=== PATIENT | female | born 1990 | race Caucasian/White ===

== ENCOUNTER 2017-06-09 21:52 | Emergency (ER) | payer OTHER ==
[2017-06-09 23:06] VITALS: BP 114/70; PULSE 85; TEMP 98.2; BMI 23.8
--- NOTE | 2017-06-10 00:37 | PDOC ---
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 Past History - Past Medical History Allergies/Adverse Reactions: Allergies Allergy/AdvReac Type Severity Reaction Status Date / Time No Known Allergies Allergy Verified 10/28/15 19:49 Home Medications: Ambulatory Orders Nitrofurantoin Macrocrystal [Macrodantin] 25 mg PO BID 10/28/15 Tablet 1 tablet PO DAILY 05/07/16 Ibuprofen [Motrin -] 600 mg PO QID #28 tablet 05/10/16 Oxycodone HCl/Acetaminophen [Percocet 5-325 mg Tablet] 1 tab PO Q6H #20 tablet MDD 4 05/10/16 Permethrin 5% Topical Cream [Elimite -] 1 applic TP ONCE #1 tube 06/10/17 Asthma: No Cancer: No Cardiac Disorders: No Diabetes: No HTN: No Seizures: No Thyroid Disease: No - Reproductive History (#): 1 Para: 1 - Suicide/Smoking/Psychosocial Hx Smoking History: Never smoked Have you smoked in the past 12 months: No Number of Cigarettes Smoked Daily: 0 Information on smoking cessation initiated: No Hx Alcohol Use: No Drug/Substance Use Hx: No Hx Substance Use Treatment: No Review of Systems - Review of Systems Able to Perform ROS?: Yes Is the patient limited Green[place]ic proficient: No Constitutional: No: Symptoms Reported, See HPI, Chills, Diaphoresis, Fever, Loss of Appetite, Malaise, Night Sweats, Weakness, Weight Stable, Unintentional Wgt. Loss, Unexplained wgt Loss, Other ABD/GI: No: Symptoms Reported, See HPI, Abdominal Distended, Abd. Pain w/ defecation, Blood Streaked Bowels, Constipated, Diarrhea, Difficulty Swallowing , Nausea, Poor Appetite, Poor Fluid Intake, Rectal Bleeding, Vomiting, Indigestion, Abdominal cramping, Tarry Stools, Other Integumentary: Yes: Pruritus, Rash. No: Symptoms Reported, See HPI, Bruising, Change in Color, Change in Hair/Nails, Dryness, Erythema, Flushing, Lesions, Lumps, Pallor, Sweating, Other *Physical Exam - Vital Signs Last Vital Signs Temp Pulse Resp BP Pulse Ox 98.2 F 85 20 114/70 100 06/09/17 23:04 06/09/17 23:04 06/09/17 23:04 06/09/17 23:04 06/09/17 23:04 - Physical Exam General Appearance: Yes: Appropriately Dressed Extremity: positive: Other (+ interphalgeal lesions, lesions thorughout body. ) Neurologic: positive: Fully Oriented, Alert Progress Note - Progress Note Progress Note: A: scabies P: permetherine cream. *DC/Admit/Observation/Transfer Diagnosis at time of Disposition: Scabies - Discharge Dispostion Disposition: HOME - Prescriptions Prescriptions: Permethrin 5% Topical Cream [Elimite -] 1 applic TP ONCE #1 tube - Referrals - Patient Instructions Printed Discharge Instructions: Scabies Additional Instructions: it is still a good idea to wash or isolate any clothing, bedding, towels, pajamas, underwear, or stuffed animals that the person has touched within three days before treatment. It is not usually necessary to wash other items. Reasonable options for eliminating mites from these items include placing them in plastic bags for at least three days, machine washing and then ironing or drying in an electric dryer on the hot setting, or dry cleaning. apply permetharine to body leave on 8-14 hours - Post Discharge Activity
== END 2017-06-10 01:17 | disposition home or self-care (01) ==
LOC: JER 21:52
DX: B86 Scabies (principal)
CPT/HCPCS: 99281-25

== ENCOUNTER 2021-07-20 14:15 | Emergency (ER) | payer OTHER ==
[2021-07-20 14:28] VITALS: BP 154/102; PULSE 88; BMI 23.8
[2021-07-20] MEDS ORDERED: ACETAMINOPHEN 1000 MG/100 ML BAG IVPB ONE (15:17)
[2021-07-20] MEDS ORDERED: FAMOTIDINE 20 MG/50 ML IVPB 20 MG/50 ML MG IVPB ONE ×2 (15:17→15:33)
[2021-07-20] MEDS ORDERED: SODIUM CHLORIDE 1,000 ML IV STA ×2 (15:17→16:47)
[2021-07-20] MEDS ORDERED: ONDANSETRON 4 MG/2 ML VIAL IVPUSH ONE (15:17)
[2021-07-20] MEDS ORDERED: ONDANSETRON 4 MG/2 ML VIAL ONE (15:32)
[2021-07-20] MEDS ORDERED: ACETAMINOPHEN INJECTION 100 ML IVPB ONE (15:32)
[2021-07-20 16:03] LABS: BASO % 0.5 % (0-2.0); HEMATOCRIT 41.4 % (32.4-45.2); HEMOGLOBIN 13.8 GM/dL (10.7-15.3); LYMPH % 9.3 % (8-40); MCH 30.7 pg (25.7-33.7); MCHC 33.3 g/dl (32.0-36.0); MEAN CELL VOLUME 92.1 fl (80-96); MEAN PLT VOLUME 7.4 fl (7.5-11.1); MONO % 2.5 % (3.8-10.2); NEUT % 87.7 % (42.8-82.8); PLATELET COUNT 309 10^3/uL (134-434); RDW 13.3 % (11.6-15.6); WHITE BLOOD COUNT 16.8 K/mm3 (4.0-10.0)
[2021-07-20 16:20] LABS: CALCIUM 8.9 mg/dL (8.5-10.1)
[2021-07-20 16:21] LABS: ALBUMIN 4.5 g/dl (3.4-5.0)
[2021-07-20 16:23] LABS: CREATININE 0.6 mg/dL (0.55-1.3)
[2021-07-20 16:25] LABS: BILIRUBIN,TOTAL 0.4 mg/dL (0.2-1); TOT PROT 8.7 g/dl (6.4-8.2)
[2021-07-20 18:03] LABS: URINE APPEARANCE CLEAR; URINE BILIRUBIN NEGATIVE (NEGATIVE); URINE COLOR YELLOW; URINE GLUCOSE (UA) NEGATIVE (NEGATIVE); URINE KETONE 4+ (NEGATIVE); URINE LEUK ESTERASE NEGATIVE (NEGATIVE); URINE NITRITE NEGATIVE (NEGATIVE); URINE PROTEIN NEGATIVE (NEGATIVE); URINE UROBILINOGEN 0.2 mg/dL (0.2-1.0)
== END 2021-07-20 18:59 | disposition home or self-care (01) ==
LOC: JER 14:15
PROC: 3E033GC Introduction of Other Therapeutic Substance into Peripheral Vein, Percutaneous Approach (ICD-10-PCS; principal; 2021-07-20)
DX: K52.9 Noninfective gastroenteritis and colitis, unspecified (principal)
CPT/HCPCS: 36415; 80053; 81003; 83690; 84703; 85025; 87086; 96365; 96375; 99284-25

== ENCOUNTER 2023-12-24 22:49 | Observation (INO) | payer OTHER ==
[2023-12-24 22:58] VITALS: BMI 23.4
[2023-12-25] MEDS ORDERED: ACETAMINOPHEN INJECTION 100 ML IVPB ONE (01:48)
[2023-12-25] MEDS ORDERED: ONDANSETRON 4 MG/2 ML VIAL ONE (01:48)
[2023-12-25] MEDS: ACETAMINOPHEN 1000 MG/100 ML BAG IVPB ONE (02:09)
[2023-12-25] MEDS: SODIUM CHLORIDE 0.9% 500 ML INFUS.BAG IV ONE (02:09)
[2023-12-25] MEDS: ONDANSETRON 4 MG/2 ML VIAL IVPB ONE (02:09)
[2023-12-25 02:15] LABS: HEMATOCRIT 35.5 % (32.4-45.2); HEMOGLOBIN 12.3 GM/dL (10.7-15.3); MCH 31.5 pg (25.7-33.7); MCHC 34.5 g/dl (32.0-36.0); MEAN CELL VOLUME 91.4 fl (80-96); MEAN PLT VOLUME 6.7 fl (7.5-11.1); PLATELET COUNT 273 10^3/uL (134-434); RBC 3.89 M/mm3 (3.60-5.2); RDW 13.4 % (11.6-15.6)
[2023-12-25] MEDS ORDERED: CEFTRIAXONE 1 GM/50 ML BAG ONE ×2 (02:31→10:54)
[2023-12-25] MEDS: CEFTRIAXONE 1,000 MG in DEXTROSE 5%-WATER - 50 ML IVPB ONE (02:43)
[2023-12-25 02:45] LABS: POTASSIUM 3.6 mmol/L (3.5-5.1)
[2023-12-25 02:47] LABS: CALCIUM 8.6 mg/dL (8.5-10.1)
[2023-12-25 02:48] LABS: ALBUMIN 3.6 g/dl (3.4-5.0); BLOOD UREA NITROGEN 8.6 mg/dL (7-18)
[2023-12-25 02:51] LABS: CREATININE 0.7 mg/dL (0.55-1.3)
[2023-12-25 02:52] LABS: EPI CELLS >36 /uL (0-25.1); HYALINE CASTS 2 /uL (0-3.1); PH,URINE 5.5 (5.0-8.0); URINE APPEARANCE CLOUDY; URINE BACTERIA 181 /uL (0-1359); URINE BILIRUBIN NEGATIVE (NEGATIVE); URINE COLOR ORANGE; URINE GLUCOSE (UA) NEGATIVE (NEGATIVE); URINE KETONE 2+ (NEGATIVE); URINE LEUK ESTERASE NEGATIVE (NEGATIVE); URINE NITRITE NEGATIVE (NEGATIVE); URINE PROTEIN 1+ (NEGATIVE); URINE RBC 1176 /uL (0-23.9)
[2023-12-25 02:53] LABS: BILIRUBIN,TOTAL 0.8 mg/dL (0.2-1); TOT PROT 7.8 g/dl (6.4-8.2)
[2023-12-25] MEDS: SODIUM CHLORIDE 1,000 ML IV STA (06:14)
[2023-12-25] MEDS: KETOROLAC TROMETHAMINE 30 MG/1 ML VIAL IM ONE (06:36)
[2023-12-25] MEDS: KETOROLAC TROMETHAMINE 15 MG/ML VIAL IVPUSH ONE (06:44)
[2023-12-25 08:21] LABS: WHITE BLOOD COUNT 30.5 K/mm3 (4.0-10.0)
[2023-12-25 08:50] LABS: ANISOCYTOSIS 0; HELMET CELLS 0; HOWELL-JOLLY BODIES 0; MACROCYTOSIS 0; OVALOCYTE 0; ROULEAU 0; SICKELED CELLS 0; TARGET CELLS 0; TEAR DROP CELLS 0; TOXIC GRANULATION 0
[2023-12-25] MEDS: SODIUM CHLORIDE 1,000 ML IV SCH (10:15)
[2023-12-25] MEDS ORDERED: ENOXAPARIN NA (PORCINE) 40 MG/0.4 ML DISP.SYRIN SQ ONE (10:53)
[2023-12-25 12:10] LABS: HEMATOCRIT 33.3 % (32.4-45.2); HEMOGLOBIN 11.1 GM/dL (10.7-15.3); MCH 30.7 pg (25.7-33.7); MCHC 33.3 g/dl (32.0-36.0); MEAN PLT VOLUME 6.7 fl (7.5-11.1); PLATELET COUNT 252 10^3/uL (134-434); RBC 3.62 M/mm3 (3.60-5.2); RDW 12.8 % (11.6-15.6); WHITE BLOOD COUNT 23.4 K/mm3 (4.0-10.0)
[2023-12-25 12:23] LABS: POTASSIUM 3.6 mmol/L (3.5-5.1)
[2023-12-25 12:28] LABS: BLOOD UREA NITROGEN 7.2 mg/dL (7-18); CALCIUM 7.9 mg/dL (8.5-10.1)
[2023-12-25 12:31] LABS: CREATININE 0.5 mg/dL (0.55-1.3)
[2023-12-25 13:33] LABS: ANISOCYTOSIS 0; HELMET CELLS 0; HOWELL-JOLLY BODIES 0; MACROCYTOSIS 0; OVALOCYTE 0; ROULEAU 0; SICKELED CELLS 0; TARGET CELLS 0; TEAR DROP CELLS 0; TOXIC GRANULATION 0
[2023-12-25] MEDS: ACETAMINOPHEN 325 MG TABLET (FP) PO PRN (14:00)
[2023-12-25] MEDS: CEFTRIAXONE 1 GM in DEXTROSE 5%-WATER - 50 ML IVPB ONE (16:32)
[2023-12-26] MEDS: CEFTRIAXONE 2 GM in DEXTROSE 5%-WATER 100 ML IVPB SCH (09:47)
[2023-12-26] MEDS: ENOXAPARIN NA (PORCINE) 40 MG/0.4 ML DISP.SYRIN SQ SCH (09:53)
[2023-12-26] MEDS ORDERED: CEFTRIAXONE 1 GM in DEXTROSE 5%-WATER - 50 ML IVPB SCH (10:00)
[2023-12-26 12:02] LABS: BASO % 0.4 % (0-2.0); EOS % 0.1 % (0-4.5); HEMATOCRIT 31.7 % (32.4-45.2); HEMOGLOBIN 10.8 GM/dL (10.7-15.3); LYMPH % 17.5 % (8-40); MCH 30.8 pg (25.7-33.7); MEAN CELL VOLUME 90.6 fl (80-96); MEAN PLT VOLUME 6.5 fl (7.5-11.1); PLATELET COUNT 278 10^3/uL (134-434); WHITE BLOOD COUNT 14.5 K/mm3 (4.0-10.0)
[2023-12-26 12:20] LABS: POTASSIUM 3.2 mmol/L (3.5-5.1)
[2023-12-26 12:21] LABS: CALCIUM 7.7 mg/dL (8.5-10.1)
[2023-12-26 12:25] LABS: CREATININE 0.5 mg/dL (0.55-1.3)
[2023-12-26] MEDS: POTASSIUM CHLORIDE TABS 20 MEQ TABLET.ER (FP) PO ONE (13:01)
[2023-12-27 09:43] LABS: POTASSIUM 3.4 mmol/L (3.5-5.1)
[2023-12-27 09:46] LABS: BASO % 0.7 % (0-2.0); EOS % 0.4 % (0-4.5); LYMPH % 21.3 % (8-40); MCH 31.1 pg (25.7-33.7); MCHC 34.3 g/dl (32.0-36.0); MEAN CELL VOLUME 90.7 fl (80-96); MEAN PLT VOLUME 6.7 fl (7.5-11.1); MONO % 13.6 % (3.8-10.2); PLATELET COUNT 348 10^3/uL (134-434); RBC 3.53 M/mm3 (3.60-5.2); RDW 13.1 % (11.6-15.6); WHITE BLOOD COUNT 9.3 K/mm3 (4.0-10.0)
[2023-12-27 09:48] LABS: ALBUMIN 3.1 g/dl (3.4-5.0); BLOOD UREA NITROGEN 4.5 mg/dL (7-18); CALCIUM 8.3 mg/dL (8.5-10.1)
[2023-12-27 09:51] LABS: CREATININE 0.6 mg/dL (0.55-1.3)
[2023-12-27 09:53] LABS: BILIRUBIN,TOTAL 0.2 mg/dL (0.2-1); TOT PROT 6.9 g/dl (6.4-8.2)
[2023-12-27] MEDS: CEFTRIAXONE 2 GM in DEXTROSE 5%-WATER 100 ML IVPB SCH (09:54)
[2023-12-27] MEDS: POTASSIUM CHLORIDE TABS 20 MEQ TABLET.ER (FP) PO ONE (11:41)
[2023-12-27 15:34] VITALS: BP 101/68; PULSE 70; RESP 18; TEMP 98.6
== END 2023-12-27 16:57 | disposition home or self-care (01) ==
LOC: JER 22:49 → UNDOADMOB 12-25 04:46 → JERBED 12-25 04:46 → INTOOBSV 12-25 04:46 → JERBED 12-25 13:32 → J6S 12-25 13:32
PROVIDERS: ADMIT Student in an Organized Health Care Education/Training Program; ATTEND Internal Medicine
PROC: 3E033NZ Introduction of Analgesics, Hypnotics, Sedatives into Peripheral Vein, Percutaneous Approach (ICD-10-PCS; principal; 2023-12-25)
PROC: 3E03329 Introduction of Other Anti-infective into Peripheral Vein, Percutaneous Approach (ICD-10-PCS; 2023-12-25)
PROC: 3E023GC Introduction of Other Therapeutic Substance into Muscle, Percutaneous Approach (ICD-10-PCS; 2023-12-25)
PROC: 3E0333Z Introduction of Anti-inflammatory into Peripheral Vein, Percutaneous Approach (ICD-10-PCS; 2023-12-25)
PROC: 3E0337Z Introduction of Electrolytic and Water Balance Substance into Peripheral Vein, Percutaneous Approach (ICD-10-PCS; 2023-12-25)
DX: N10 Acute pyelonephritis (principal); Z87.891 Personal history of nicotine dependence
CPT/HCPCS: 0241U-QW; 36415; 74177-TC; 76830-TC; 80048; 80053; 81003; 83605; 84703; 85025; 87040; 87086; 96361; 96365; 96366; 96372; 96375; 99285-25; G0378; J0131; Q9967